=== PATIENT | male | born 1940 | race Caucasian/White ===

== ENCOUNTER 2016-11-03 09:34 | Emergency (ER) | payer MEDICARE, OTHER ==
[~2016-11-03] VITALS: Ht 170.2 cm; Wt 48.5 kg
[~2016-11-03 09:34] MED LIST: ALBU2.5V5 IH; ALLO300T PO; AMLO2.5T PO; ASPI81TA2 PO; BENZ100C2 PO; BREO IH; CLOP75TA27 PO; CYCL10TA2 PO; FINA5TAB4 PO; FLUT10SP NS; FLUT30CR TP; HYDR-971 PO; IPRA14.7 IH; LISI10TA2 PO; LORA10TA3 PO; MECL-51 PO; METO25TA4 PO; MUPI22OI2 TP; NITR0.4T6 SL; OMEG1CAP32 PO; PROAIR HFA8.5 GM IH; RANI300C PO; RIVA10TA PO; SIMV40TA3 PO; colchicine PO
[2016-11-03 11:00] VITALS: BP 136/84
--- NOTE | 2016-11-03 11:09 | RAD ---
Left lower extremity venous ultrasound, 11/03/2016 : History: Left lower extremity pain and tenderness Duplex evaluation including grayscale, color flow and spectral Doppler analysis was performed. The femoral and popliteal veins show no filling defects to suggest DVT. The visualized calf veins are unremarkable. Mildly prominent left inguinal lymph nodes were noted. IMPRESSION: There is no sonographic evidence of deep vein thrombosis in the left lower extremity
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
== END 2016-11-03 11:45 | disposition home or self-care (01) ==
LOC: ER 09:34
DX: M79.662 Pain in left lower leg (principal); I10 Essential (primary) hypertension; I25.2 Old myocardial infarction; J44.9 Chronic obstructive pulmonary disease, unspecified; J45.909 Unspecified asthma, uncomplicated; N40.0 Benign prostatic hyperplasia without lower urinary tract symptoms; Z95.1 Presence of aortocoronary bypass graft; Z88.0 Allergy status to penicillin
CPT/HCPCS: 93971; 99284-25

== ENCOUNTER → 2017-01-30 | Outpatient (CLI) | payer OTHER ==
--- NOTE | 2017-01-30 16:19 | EEG ---
DATE OF SERVICE: 01/30/2017 ELECTROENCEPHALOGRAPH NUMBER: [id number]. OBJECTIVE: This is a 76-year-old male patient with a history of memory loss. EEG was requested to evaluate cerebral activity. METHODS: Twenty electrodes were applied according to the international 10-20 electrode placement system. EKG monitoring, hyperventilation, intermittent photic stimulation, monopolar and bipolar montages are routinely utilized. The record was obtained on a digital system with video monitoring. FINDINGS: 1. Background: The patient was recorded in the awake, drowsy, and sleep states. The overall background amplitude is 5-10 microvolts. A posterior dominant rhythm of 7-10 Hz is observed. 2. Abnormalities: No specific epileptiform discharge or electrographic seizure is seen. No focal or diffuse slowing. 3. Activation: Hyperventilation was performed with good efforts and normal response. Intermittent photic stimulation was performed with photic driving. IMPRESSION: This EEG is within the broad normal limits of the study for the awake, drowsy, and sleep states. No focal, lateralizing, specific epileptiform discharge or electrographic seizure is seen. HIWOT TIAN MD DR: JOHNNY/yakov JOB#: [id number] / [id number]
== END | disposition home or self-care (01) ==
LOC: RT 08:36
PROVIDERS: ATTEND Psychiatry & Neurology Neurology
DX: R41.3 Other amnesia (principal)
CPT/HCPCS: 95816

== ENCOUNTER 2017-03-10 14:43 | Emergency (ER) | payer OTHER ==
[~2017-03-10] VITALS: Ht 175.3 cm; Wt 75.7 kg
[~2017-03-10 14:43] MED LIST changes: +ASPI-630 PO; -ASPI81TA2 PO; +BENZ100C15 PO; -BENZ100C2 PO; -CLOP75TA27 PO; +CLOP75TA57 PO; +NITR0.4T22 SL; -NITR0.4T6 SL
[2017-03-10 15:05] VITALS: BP 148/80
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
[2017-03-10] MEDS ORDERED: NEOMY/BACITR/POLYMYXIN OINT PACKET. TP ONE (15:17)
[2017-03-10] MEDS ORDERED: IBUPROFEN 400 MG TABLET. PO ONE (15:45)
== END 2017-03-10 15:28 | disposition home or self-care (01) ==
LOC: ER 14:43
DX: T23.101A Burn of first degree of right hand, unspecified site, initial encounter (principal); T23.102A Burn of first degree of left hand, unspecified site, initial encounter; J44.9 Chronic obstructive pulmonary disease, unspecified; I10 Essential (primary) hypertension; I25.2 Old myocardial infarction; N40.0 Benign prostatic hyperplasia without lower urinary tract symptoms; Z98.890 Other specified postprocedural states; Z88.0 Allergy status to penicillin; X19.XXXA Contact with other heat and hot substances, initial encounter; Y93.89 Activity, other specified; Y99.8 Other external cause status; Y92.89 Other specified places as the place of occurrence of the external cause
CPT/HCPCS: 16000; 99284-25

== ENCOUNTER → 2018-01-04 | Outpatient (CLI) | payer OTHER, MEDICAID | END | disposition home or self-care (01) | LOC: PNCL 08:46 | DX: M54.5 Low back pain (principal); M25.552 Pain in left hip; M79.605 Pain in left leg; J45.909 Unspecified asthma, uncomplicated; Z79.02 Long term (current) use of antithrombotics/antiplatelets; Z87.891 Personal history of nicotine dependence; Z88.0 Allergy status to penicillin; Z95.1 Presence of aortocoronary bypass graft | CPT/HCPCS: G0463 ==

== ENCOUNTER → 2018-01-14 | Outpatient (CLI) | payer OTHER, MEDICAID ==
[~2018-01-14] MED LIST changes: -ALBU2.5V5 IH; -ALLO300T PO; -AMLO2.5T PO; -ASPI-630 PO; -BENZ100C15 PO; -BREO IH; +BUPIVACAINE MPF 0.25% 10 ML VIAL.; -CLOP75TA57 PO; -CYCL10TA2 PO; -FINA5TAB4 PO; -FLUT10SP NS; -FLUT30CR TP; -HYDR-971 PO; +IOHEXOL 180 MG/ML 10 ML VIAL.; -IPRA14.7 IH; -LISI10TA2 PO; -LORA10TA3 PO; -MECL-51 PO; -METO25TA4 PO; -MUPI22OI2 TP; -NITR0.4T22 SL; -OMEG1CAP32 PO; -PROAIR HFA8.5 GM IH; -RANI300C PO; -RIVA10TA PO; -SIMV40TA3 PO; -colchicine PO; +methylPREDNISolone ACETATE 40 MG/ML VIAL.; +methylPREDNISolone ACETATE 80 MG/ML VIAL.
== END | disposition home or self-care (01) ==
LOC: PNCL 09:46
DX: M46.1 Sacroiliitis, not elsewhere classified (principal); M51.16 Intervertebral disc disorders with radiculopathy, lumbar region; E78.00 Pure hypercholesterolemia, unspecified; I10 Essential (primary) hypertension; J43.9 Emphysema, unspecified; K21.9 Gastro-esophageal reflux disease without esophagitis; Z88.0 Allergy status to penicillin; Z88.1 Allergy status to other antibiotic agents; Z95.1 Presence of aortocoronary bypass graft; Z98.890 Other specified postprocedural states; Z87.01 Personal history of pneumonia (recurrent); M19.90 Unspecified osteoarthritis, unspecified site; F17.200 Nicotine dependence, unspecified, uncomplicated; I25.119 Atherosclerotic heart disease of native coronary artery with unspecified angina pectoris; M10.9 Gout, unspecified; Z82.49 Family history of ischemic heart disease and other diseases of the circulatory system
CPT/HCPCS: 27096; 77002; G0260; J1030; J1040; J3490; Q9965

== ENCOUNTER → 2018-05-05 | Outpatient (CLI) | payer OTHER, MEDICAID ==
[2017-07-10 10:55] VITALS: BP 114/61
[~2018-05-05] MED LIST changes: +ACET500T68 PO; +ALBU2.5V5 IH; +ALLO300T PO; +AMLO2.5T PO; +ASPI-630 PO; +BENZ-8 PO; +BREO IH; -BUPIVACAINE MPF 0.25% 10 ML VIAL.; +CLOP75TA PO; +CLOP75TA57 PO; +CYCL10TA2 PO; +FINA5TAB4 PO; +FLUT10SP NS; +FLUT30CR TP; +GABA-586 PO; +HYDR-971 PO; -IOHEXOL 180 MG/ML 10 ML VIAL.; +IOHEXOL 180 MG/ML 10 ML VIAL. ONE; +IPRA14.7 IH; +LIDOCAINE 2% PF 2ML VIAL. ONE; +LISI10TA2 PO; +LORA10TA3 PO; +MECL-51 PO; +METO-239 PO; +METO25TA4 PO; +MUPI22OI2 TP; +NITR0.4T22 SL; +OMEG1CAP32 PO; +PROAIR HFA8.5 GM IH; +RANI300C PO; +RIVA10TA PO; +SIMV10TA3 PO; +SIMV40TA3 PO; +TAMS0.4C2 PO; +colchicine PO; -methylPREDNISolone ACETATE 40 MG/ML VIAL.; +methylPREDNISolone ACETATE 40 MG/ML VIAL. ONE; -methylPREDNISolone ACETATE 80 MG/ML VIAL.; +methylPREDNISolone ACETATE 80 MG/ML VIAL. ONE
--- NOTE | 2018-05-05 21:58 | PAIN ---
DATE OF SERVICE: 05/05/2018 DIAGNOSES: 1. Lumbar radiculopathy with lumbar degenerative disk disease. 2. Left sacroiliitis. HISTORY OF PRESENT ILLNESS: The patient is a 77-year-old male who returns for followup status post left sacroiliac joint injection on 01/14/2018. The patient did very well with this, reports the pain was decreased significantly about 60%, still having pain radiating down his left lower extremity which he had previously. We discussed coming back for a lumbar epidural steroid injection and the patient would like to proceed with that today. The patient reports pain in low back, left hip, left lateral thigh, posterior thigh, posterior calf, into the lateral calf and ankle on the left side. Rates it 8 on a scale of 10 on average, 9 is worst and is 5 at its least and is 8 today. The patient reports no new motor or sensory deficits, no new bowel or bladder incontinence. Describes his pain is shooting, sharp, burning, tight, aching in the low back; worse with activity, worse with standing, walking; better with sitting down or lying down. The patient reports the pain is essentially gone when he lies down. He is sleeping well at night. PHYSICAL EXAMINATION: VITAL SIGNS: The patient's blood pressure 120/67, pulse 90, respirations 18, temperature 98.2 degrees Fahrenheit, 5 feet 7 inches, weight is 165 pounds. GENERAL: The patient is awake, alert, oriented, appropriate, very pleasant demeanor. HEENT: Head is normocephalic, atraumatic. Extraocular movements are intact, symmetrical. Oral cavity: Mucous membranes moist and pink. Dentition is intact. NECK: Shows anterior throat supple without palpable lymphadenopathy noted. Swallow reflex symmetrical. CHEST: Shows normal on inspection. Breath sounds clear to auscultation bilaterally. HEART: Shows S1, S2 clear. No murmurs auscultated. ABDOMEN: Soft, nontender, nondistended. No palpable organomegaly is noted. No rebound or guarding demonstrated. BACK: The patient's back shows spine grossly in the midline, normal-appearing thoracic kyphosis and minor flattening lumbar lordotic curvature. Lumbar paraspinous muscle shows symmetrical on inspection, on palpation shows some moderate tenderness only diffusely in the low lumbar distribution bilaterally without radiation. The patient has good rotational motion without significant tenderness both laterally as well as extension and flexion. EXTREMITIES: The patient's lower extremities show deep tendon reflexes at 1+ in the patellar and tendo-calcaneus tendons. Motor exam is strong with 4-5 on a scale of 10, but equal and symmetrical bilaterally. PLAN: Options were discussed with the patient. The patient has been off of his Plavix now for just over 7 days and would like to proceed with lumbar epidural steroid injection. We described the procedure using description as well as anatomical models. Risks were then discussed including, but not limited to bleeding, infection, possibility of epidural hematoma and subsequent neurological compromise, dural puncture, headaches, spinal cord and/or nerve damage, side effects of steroid medication and poor to describe pain control. The patient understands and wishes to proceed. The patient will return to clinic in approximately 2 weeks for followup. He was counseled on return appointment, activity level and side effects to be aware of. DIAGNOSIS: Lumbar radiculopathy with lumbar degenerative disk disease. PROCEDURE: Lumbar epidural steroid injection, translaminar approach at L5-S1 level using C-arm fluoroscopic guidance under sterile prep and drape using local anesthetic. MEDICATION INJECTED: A total of 120 mg Depo-Medrol plus 10 mL of preservative-free normal saline and 2 mL of Isovue for contrast. CONDITION AT DISCHARGE: Stable. The patient tolerated procedure well, had no complications. FREEDOM RANDOLPH MD DR: RADHA/yakov JOB#: [id number] / [id number]
== END | disposition home or self-care (01) ==
LOC: PNCL 09:01
PROVIDERS: ATTEND Anesthesiology
DX: M51.16 Intervertebral disc disorders with radiculopathy, lumbar region (principal); M46.1 Sacroiliitis, not elsewhere classified; I25.10 Atherosclerotic heart disease of native coronary artery without angina pectoris; J43.9 Emphysema, unspecified; J45.909 Unspecified asthma, uncomplicated; M19.90 Unspecified osteoarthritis, unspecified site; E78.00 Pure hypercholesterolemia, unspecified; I10 Essential (primary) hypertension; K21.9 Gastro-esophageal reflux disease without esophagitis; F17.200 Nicotine dependence, unspecified, uncomplicated; Z98.890 Other specified postprocedural states; Z95.1 Presence of aortocoronary bypass graft; Z88.1 Allergy status to other antibiotic agents; Z88.0 Allergy status to penicillin; Z79.02 Long term (current) use of antithrombotics/antiplatelets; Z79.899 Other long term (current) drug therapy
CPT/HCPCS: 62323; J1030; J1040; J2001; Q9965

== ENCOUNTER 2018-12-03 14:16 | Emergency (ER) | payer OTHER, MEDICAID ==
[~2018-12-03] VITALS: Ht 177.8 cm; Wt 77.1 kg
[~2018-12-03 14:16] MED LIST changes: +ALBU2.5V8 IH; -AMLO2.5T PO; +AMLO2.5T5 PO; -GABA-586 PO; +GABA300C18 PO; +HYDR-3164 PO; -HYDR-971 PO; -IOHEXOL 180 MG/ML 10 ML VIAL. ONE; -LIDOCAINE 2% PF 2ML VIAL. ONE; -PROAIR HFA8.5 GM IH; -methylPREDNISolone ACETATE 40 MG/ML VIAL. ONE; -methylPREDNISolone ACETATE 80 MG/ML VIAL. ONE
[2018-12-03 14:26] VITALS: BP 169/90
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
--- NOTE | 2018-12-03 15:14 | RAD ---
Examination: 2 views of the right humerus HISTORY: History of right upper extremity pain COMPARISON: None available FINDINGS: The humerus head is within the glenoid. Mild degenerative disease identified in the glenohumeral joint. There is no acute fracture or dislocation identified. IMPRESSION: No acute osseous findings. Electronically signed by: Kiel Johnson MD (12/03/2018 3:10 PM) [id number]
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
[2018-12-03 15:38] LABS: BASO % 1 % (0-3); EOS # 0.1 x10^3/uL (0.0-0.7); EOS % 2 % (0-3); HEMATOCRIT 38.8 % (39.0-53.0); LYMPH # 1.6 x10^3/uL (1.0-4.8); LYMPH % 23 % (24-48); MEAN CORPUSCULAR HEMOGLOBIN 30 pg (25-35); MEAN CORPUSCULAR HGB CONC 33 g/dL (31-37); MEAN CORPUSCULAR VOLUME 91 fL (79-100); MONO # 0.9 x10^3/uL (0.0-1.1); MONO % 13 % (0-9); NEUT # 4.2 x10^3uL (1.8-7.7); NEUT % 62 % (31-73); PLATELET COUNT 165 x10^3/uL (140-400); RED BLOOD COUNT 4.29 x10^6/uL (4.30-5.70); RED CELL DISTRIBUTION WIDTH 15.7 % (11.5-14.5); WHITE BLOOD COUNT 6.9 x10^3/uL (4.0-11.0)
[2018-12-03 15:52] LABS: CALCIUM 9.1 mg/dL (8.5-10.1); CREATININE 1.1 mg/dL (0.7-1.3); GFR 65.1; POTASSIUM 3.9 mmol/L (3.5-5.1)
[2018-12-03 15:55] LABS: PROTHROMBIN TIME PATIENT 13.7 SEC (11.7-14.0)
[2018-12-03 15:57] LABS: ALBUMIN 3.6 g/dL (3.4-5.0); ALBUMIN/GLOBULIN RATIO 0.9 (1.0-1.7); TOTAL BILIRUBIN 0.5 mg/dL (0.2-1.0); TOTAL PROTEIN 7.4 g/dL (6.4-8.2)
[2018-12-03] MEDS ORDERED: TRAM50TA PO (16:06)
== END 2018-12-03 16:21 | disposition home or self-care (01) ==
LOC: ER 14:16
DX: S09.90XA Unspecified injury of head, initial encounter (principal); M79.601 Pain in right arm; K21.9 Gastro-esophageal reflux disease without esophagitis; J44.9 Chronic obstructive pulmonary disease, unspecified; I10 Essential (primary) hypertension; E78.00 Pure hypercholesterolemia, unspecified; I25.2 Old myocardial infarction; Z86.73 Personal history of transient ischemic attack (TIA), and cerebral infarction without residual deficits; Z95.5 Presence of coronary angioplasty implant and graft; Z88.0 Allergy status to penicillin; Z88.1 Allergy status to other antibiotic agents
CPT/HCPCS: 36415; 70450; 71045; 72125; 73060; 80053; 85025; 85610; 99284-25

== ENCOUNTER → 2019-06-06 | Outpatient (CLI) | payer OTHER, MEDICAID ==
[~2019-06-06] MED LIST changes: +TRAM50TA PO
--- NOTE | 2019-06-06 10:34 | PAIN ---
DATE OF SERVICE: 06/06/2019 PROGRESS NOTE FOR PAIN CLINIC DIAGNOSES: 1. Lumbar radiculopathy with lumbar degenerative disk disease. 2. Sacroiliitis, left. HISTORY OF PRESENT ILLNESS: The patient is a 78-year-old male who returns for followup status post lumbar epidural steroid injection x 1 and left sacroiliac joint injection, last seen in 04/2018. The patient did very well with each of these with about 60% improvement. The patient reports pain in the back and legs stay away for a long time, but over the past couple of months, he was lifting a large cat litter bucket which is full and very heavy which has put some strain on his low back and it is shooting down into his left leg down the posterior gluteus, posterior thigh, posterior calf to some extent. The patient reports the pain in the hip itself, but mostly in the left posterior thigh and into the knee. The patient reports it is on and off in intensity, worse with walking, standing, changing positions, better with sitting or lying down, does not awaken him from sleep at night generally, but has over the past 2-3 weeks. The patient reports the pain is a 9 on a scale of 10 at all times, average, worst and least over the past week and is a 9 today. The patient reports no new motor or sensory deficits, no new changes. PHYSICAL EXAMINATION: VITAL SIGNS: The patient's blood pressure 123/55, pulse 69, respirations 18, temperature 98.1 degrees Fahrenheit, height is 5 feet 7 inches, weight is 157 pounds. GENERAL: The patient is awake, alert, oriented, appropriate, very pleasant demeanor. HEENT: Shows normocephalic, atraumatic. Extraocular movements are intact and symmetrical. Oral cavity: Mucous membranes moist and pink. Dentition is intact. NECK: Shows anterior throat supple without palpable lymphadenopathy noted. Swallow reflex symmetrical. CHEST: Shows normal on inspection. Breath sounds are clear to auscultation bilaterally. HEART: Shows S1, S2 clear. No murmurs auscultated. ABDOMEN: Soft, nontender, nondistended. No palpable organomegaly is noted. No rebound or guarding demonstrated. BACK: Shows spine grossly in the midline. Normal appearing thoracic kyphosis and minor flattening of lumbar lordotic curvature. Lumbar paraspinous muscle shows symmetrical on inspection, with palpation shows some moderate tenderness diffusely bilaterally going diffusely without radiation. EXTREMITIES: The patient's lower extremities show deep tendon reflexes at 1+ in the patellar and tendo calcaneus tendons. Motor exam is approximately 4 on a scale of 5, but equal, symmetrical with dorsiflexion, extension, quadriceps and hamstring flexion. Peripheral pulses are 1+ posterior tibia. No peripheral edema is noted. The patient's sacroiliac region shows some very mild tenderness with deep palpation of the left posterior superior iliac spine, but not the right, but no specific tenderness over the sacroiliac joint itself. Options were discussed with the patient. The patient's old chart was reviewed as his current medication regimen updated. Current review of systems updated today as well. We will check with the patient's destination specialist to hold his Plavix for 7 days prior to lumbar epidural steroid injection. If deemed safe and appropriate. We will have the patient return after holding the Plavix and plan on lumbar epidural steroid injection at that time. FREEDOM RANDOLPH MD DR: RADHA/yakov JOB#: [id number] / [id number]
== END | disposition home or self-care (01) ==
LOC: PNCL 08:57
PROVIDERS: ATTEND Anesthesiology
DX: M51.16 Intervertebral disc disorders with radiculopathy, lumbar region (principal); M46.1 Sacroiliitis, not elsewhere classified
CPT/HCPCS: G0463

== ENCOUNTER → 2019-06-21 | Outpatient (CLI) | payer OTHER, MEDICAID ==
[~2019-06-21] MED LIST changes: -FLUT30CR TP; +FLUT30CR2 TP
--- NOTE | 2019-06-21 13:23 | PAIN ---
DATE OF SERVICE: 06/21/2019 PROGRESS NOTE FOR PAIN CLINIC DIAGNOSES: Lumbar radiculopathy with lumbar degenerative disk disease. HISTORY OF PRESENT ILLNESS: The patient is a 78-year-old male who returns for followup status post lumbar epidural steroid injection x 1 with about 60% improvement. The patient has been off his Plavix now, is cleared by his senior group manager for the past 7 days. He reports pain returning in the low back and left lower extremity. It was previously mostly in posterior gluteus, posterior thigh and posterior calf. The patient reports it is worse with walking, standing, changing positions. He reports he was cleaning his garage yesterday and he fell over a box, which has exacerbated the pain as well on the left side and leg. The patient reports otherwise doing fairly well. No new motor or sensory deficits, no new bowel or bladder incontinence. The patient rates his pain as a 9 on a scale of 10 at its worst, average and least over the past week and is a 9 today. The patient reports it does not awaken him from sleep at night, better with sleeping or lying down and he has increased his activity since his last injection significantly. PHYSICAL EXAMINATION: VITAL SIGNS: The patient's blood pressure is 137/77, pulse is 88, respirations 16, temperature 98.0 degrees Fahrenheit, height is 5 feet 7 inches, weight is 157 pounds. GENERAL: The patient is awake, alert, oriented, appropriate, very pleasant demeanor. HEENT: Shows normocephalic, atraumatic. Extraocular movements are intact and symmetrical. Oral cavity: Mucous membranes moist and pink. Dentition is intact. NECK: Shows anterior throat supple without palpable lymphadenopathy noted. Swallow reflex symmetrical. CHEST: Shows normal on inspection. Breath sounds clear to auscultation bilaterally. HEART: Shows S1, S2 clear. No murmurs auscultated. ABDOMEN: Soft, nontender, nondistended. BACK: Shows spine grossly in the midline. Normal appearing thoracic kyphosis and flattening of lumbar lordotic curvature. Lumbar paraspinous muscle shows symmetrical on inspection, with palpation shows some moderate tenderness diffusely bilaterally, going diffusely without radiation. EXTREMITIES: The patient's lower extremities show deep tendon reflexes 1+ in the patellar and tendo calcaneus tendons. Motor exam is approximately 4 on a scale of 5, but equal and symmetrical bilaterally without deficit. Peripheral pulses are 1+ posterior tibia. No peripheral edema is noted. Options were discussed with the patient. The patient's old chart was reviewed as his current medication regimen and updated. Current review of systems is updated as well. We will proceed with lumbar epidural steroid injection today. Risks were again discussed including, but not limited to bleeding, infection, possibility of epidural hematoma, subsequent neurological compromise, dural puncture, headaches, spinal cord and/or nerve damage, side effects of steroid medication and poor results regarding pain control. The patient understands and wished to proceed. The patient will return to clinic in approximately 3 weeks for followup. He was counseled on return appointment, activity level and side effects to be aware of. The patient will restart his Plavix tomorrow as instructed. DIAGNOSES: Lumbar radiculopathy with lumbar degenerative disk disease. PROCEDURE: Lumbar epidural steroid injection, translaminar approach at the L5-S1 level using C-arm fluoroscopic guidance under sterile prep and drape using local anesthetic. MEDICATION INJECTED: A total of 120 mg of Depo-Medrol plus 10 mL of preservative-free normal saline and 2 mL of contrast. CONDITION AT DISCHARGE: Stable. The patient tolerated the procedure well, had no complications. FREEDOM RANDOLPH MD DR: RADHA/yakov JOB#: [id number] / [id number]
== END ==
LOC: PNCL 11:02
PROVIDERS: ATTEND Anesthesiology
DX: M51.16 Intervertebral disc disorders with radiculopathy, lumbar region (principal)
CPT/HCPCS: 62323

== ENCOUNTER → 2019-09-28 | Day surgery (SDC) | payer MEDICARE, OTHER ==
[~2019-09-28] MED LIST changes: +BREO ELLIPTA 11 EACH IH; +HYDROmorphone 2 MG/ML VIAL IV PRN; +IV RINGERS,LACTATED 1000ML 1,000 ML IV SCH; +LIDOCAINE 1% PF 2 ML VIAL. ID PRN; +LIDOCAINE 2% PF 5 ML VIAL. ONE; +MORPHINE SULFATE 2 MG/ML VIAL. IV PRN; +ONDANSETRON PF 4 MG/2 ML VIAL. IV PRN; +PROCHLORPERAZINE 10 MG/2 ML VIAL. IV PRN; +PROPOFOL 20 ML IV ONE; +RIVA20TA2 PO; +SIMV10TA15 PO; -SIMV10TA3 PO; +SIMV40TA18 PO; -SIMV40TA3 PO; +fentaNYL PF VIAL 100 MCG/2 ML VIAL IV PRN
--- NOTE | 2019-09-28 09:59 | EKG ---
[facility] [address] [place] [address] Test Date: 2019-09-28 Test Time: 09:58:02 Pat Name: DARLYN FLORES Department: Room: Gender: M [employer] Operations Manager: ANTONIETA Plummer : 1940 Requested By: GILBERTO DIAZ Order Number: [id number] Reading MD: Measurements Intervals [place] Rate: 66 P: DE: QRS: 70 QRSD: 90 T: 31 QT: 410 QTc: 432 Interpretive Statements IRREGULAR RHYTHM, NO P-WAVE FOUND LOW LIMB LEAD VOLTAGE NO SPECIFIC ECG ABNORMALITIES RI6.01 Compared to ECG 12/02/2015 12:27:15 Sinus rhythm no longer present Prolonged QT interval no longer present
[2019-09-28 10:42] LABS: HEMATOCRIT 40.2 % (39.0-53.0); HEMOGLOBIN 13.9 g/dL (13.0-17.5); RED BLOOD COUNT 4.4 x10^6/uL (4.30-5.70); RED CELL DISTRIBUTION WIDTH 15.5 % (11.5-14.5); WHITE BLOOD COUNT 7.2 x10^3/uL (4.0-11.0)
[2019-09-28 11:05] LABS: CALCIUM 9.1 mg/dL (8.5-10.1); CREATININE 1.1 mg/dL (0.7-1.3); GFR 64.9; MAGNESIUM 1.9 mg/dL (1.8-2.4); POTASSIUM 3.9 mmol/L (3.5-5.1)
--- NOTE | 2019-09-28 11:27 | EKG ---
[facility] [address] [place] [address] Test Date: 2019-09-28 Test Time: 11:25:03 Pat Name: DARLYN FLORES Department: Room: Gender: M Household Cook: : 1940 Requested By: GILBERTO DIAZ Order Number: [id number] Reading MD: Measurements Intervals [place] Rate: 59 P: 0 [place]: 186 QRS: 49 QRSD: 88 T: 30 QT: 436 QTc: 436 Interpretive Statements SINUS RHYTHM LOW LIMB LEAD VOLTAGE NO SPECIFIC ECG ABNORMALITIES RI6.02 Compared to ECG 12/02/2015 12:27:15 Prolonged QT interval no longer present
[2019-09-28 11:49] VITALS: BP 124/66
--- NOTE | 2019-09-28 14:07 | PDOC4 ---
PROCEDURE Procedure Patient is a pleasant 79-year-old male with a history of bypass surgery, hyp erlipidemia and hypertension. Patient also has a history of atrial fibrillation which has been now on a continuing basis. He has been on Xeralto for greater than 6 weeks. We have discussed on several occasions attempted cardioversion with the advantage being both symptomatically and if he remains in sinus rhythm being able to discontinue his anticoagulation after several months. Risks and benefits discussed with patient. He has agreed to proceed with an attempted cardioversion. CBC and BNP results were within normal limits. The patient confirmed he has been on Xeralto for greater than 6 weeks. The anesthesiology service reviewed the patient and proceeded with anesthetizing the patient to a appropriate level of consciousness. At that time the patient received 200 J of synchronized energy which converted him from a atrial fibrillation to sinus rhythm. He woke up normally from anesthesia. Results were discussed with the patient and his family. He will be continued on present medications and followed up in the [facility] in 2-3 weeks. Conclusion. Successful cardioversion of atrial fibrillation to sinus rhythm. GILBERTO DIAZ MD Sep 28, 2019 14:07
== END ==
LOC: SURG 09:13
PROVIDERS: ATTEND Internal Medicine Cardiovascular Disease
DX: I48.91 Unspecified atrial fibrillation (principal); Z86.73 Personal history of transient ischemic attack (TIA), and cerebral infarction without residual deficits; I10 Essential (primary) hypertension; E78.00 Pure hypercholesterolemia, unspecified; I25.10 Atherosclerotic heart disease of native coronary artery without angina pectoris; J43.9 Emphysema, unspecified; K21.9 Gastro-esophageal reflux disease without esophagitis; M10.9 Gout, unspecified; Z95.1 Presence of aortocoronary bypass graft; Z87.891 Personal history of nicotine dependence; Z98.42 Cataract extraction status, left eye; Z98.41 Cataract extraction status, right eye; Z96.1 Presence of intraocular lens
CPT/HCPCS: 36415; 80048; 83735; 85027; 92960; 93005; J2001; J2704

== ENCOUNTER 2020-03-27 16:28 | Emergency (ER) | payer MEDICARE, MEDICAID ==
[~2020-03-27] VITALS: Ht 167.6 cm; Wt 63.6 kg
[~2020-03-27 16:28] MED LIST changes: +DIGO125T3 PO; -HYDROmorphone 2 MG/ML VIAL IV PRN; -IV RINGERS,LACTATED 1000ML 1,000 ML IV SCH; -LIDOCAINE 1% PF 2 ML VIAL. ID PRN; -LIDOCAINE 2% PF 5 ML VIAL. ONE; +METO50TA6 PO; -MORPHINE SULFATE 2 MG/ML VIAL. IV PRN; -ONDANSETRON PF 4 MG/2 ML VIAL. IV PRN; -PROCHLORPERAZINE 10 MG/2 ML VIAL. IV PRN; -PROPOFOL 20 ML IV ONE; +ZINC220C2 PO; -fentaNYL PF VIAL 100 MCG/2 ML VIAL IV PRN
--- NOTE | 2020-03-27 18:36 | PHYS DOC ---
Past Medical History Past Medical History: Asthma, Bronchitis, COPD, CVA, GERD, High Cholesterol, Hypertension, OK, Other Additional Past Medical Histor: MIX 2 IN 2008, ENLARGED PROSTATE, SEASONAL ALL ERIGES, GOUT Past Surgical History: Coronary Bypass Surgery, Tonsillectomy, Other Additional Past Surgical Histo: METAL PLATES IN NECK(ARTHRITIS), VASCULAR SURGERY LEFT LEG,HERNIA Smoking Status: Former Smoker Alcohol Use: None Drug Use: None General Adult EDM: Chief Complaint: LOWEREXTREMITY INJURY HPI: HPI: Patient is a 79 year old male who had a fall in his bathroom a couple days ago. Patient states there is a lip and he lost his balance and fell backwards. Patient did hit his head but had no loss of consciousness. Patient complains of right hip and left foot pain. Patient denies any trouble breathing. Patient has had a cough. Of note patient had coronavirus 2 months ago. No recent feve rs. No trouble breathing. Pain in the foot is the worst and worse with movement and range of motion. Pain is described as moderate and nonradiating. Review of Systems: Review of Systems: Constitutional: Denies fever or chills Eyes: Denies change in visual acuity HENT: Denies sore throat Respiratory: Denies shortness of breath but has had a cough Cardiovascular: Denies chest pain or edema GI: Denies abdominal pain, nausea, vomiting, or diarrhea : Denies dysuria Musculoskeletal: Complains of back pain, right hip and left foot pain Integument: Denies rash Neurologic: Denies headache or focal weakness Psychiatric: Denies depression or anxiety Heart Score: Risk Factors: Risk Factors: DM, Current or recent (<one month) smoker, HTN, HLP, family history of CAD, obesity. Risk Scores: Score 0 - 3: 2.5% MACE over next 6 weeks - Discharge Home Score 4 - 6: 20.3% MACE over next 6 weeks - Admit for Clinical Observation Score 7 - 10: 72.7% MACE over next 6 weeks - Early Invasive Strategies Allergies: Allergies: Allergies Coded Allergies Type Severity Reaction Last Updated Verified Penicillins Allergy Intermediate Rash 01/20/20 Yes doxycycline Allergy Intermediate lipsswollen, brokeout mouth 09/22/19 Yes Physical Exam: PE: Constitutional: Well developed, well nourished, no acute distress, non-toxic appearance. [] HENT: Normocephalic, atraumatic, bilateral external ears normal, no trismus nose normal. [] Eyes: PERRLA, EOMI, conjunctiva normal, no discharge. [] Neck: Normal range of motion, no tenderness, supple, no stridor. [] Cardiovascular:Heart rate regular rhythm, Lungs & Thorax: Bilateral breath sounds clear to auscultation [] Abdomen: soft, no tenderness, no masses, no pulsatile masses. [] Skin: Warm, dry, no erythema, no rash. mild erythema to left leg w/o significant warmth Back: Mild diffuse tenderness to palpation Extremities: Mild tenderness to the right hip, mild tenderness to left ankle moderate tenderness to left foot. Mild edema to bilateral lower extremity, left greater than right. Neurologic: Alert and oriented X 3, normal motor function, normal sensory function, no focal deficits noted. [] Psychologic: Affect normal, judgement normal, mood normal. [] EKG: EKG: [] Radiology/Procedures: Radiology/Procedures: [][facility] [address] [place], [place] [id number] IMAGING REPORT Signed PATIENT: DARLYN FLORES OACCOUNT: [id number] : 1940 LOCATION: ER AGE: 79 SEX: M EXAM STATUS: REG ER ORD. PHYSICIAN: LILLI BARKSDALE MD REASON: fall PROCEDURE: ANKLE LEFT 3V EXAM: AP, oblique and lateral views of the left ankle AP, oblique and lateral views of the left foot DATE: 03/27/2020 6:23 PM INDICATION: Fall COMPARISON: No Prior FINDINGS: No acute fracture or dislocation. Ankle mortise is congruent. Talar dome is intact. Marked soft tissue swelling overlying the lateral malleolus and anterior left ankle as well as the dorsal forefoot and midfoot. Hallux MTP joint degenerative changes are seen. Ankle joint degenerative changes are seen. Talonavicular joint degenerative changes are seen. Atherosclerotic vascular calcifications are seen. Calcaneal enthesopathy. IMPRESSION: 1. Diffuse soft tissue swelling about the left foot and ankle without associated fracture or dislocation. 2. Calcaneal enthesopathy. 3. Hallux MTP degenerative change as well as midfoot degenerative changes are seen. Electronically signed by: Miguel Ma MD (03/27/2020 7:10 PM) [facility] DICTATED and SIGNED BY: MIGUEL MA MD DATE: 03/27/20 191 [facility] [address] [place] [address] IMAGING REPORT Signed PATIENT: DARLYN FLORES OACCOUNT: [id number] : 1940 LOCATION: ER AGE: 79 SEX: M EXAM STATUS: REG ER ORD. PHYSICIAN: LILLI BARKSDALE MD REASON: fall PROCEDURE: PORTABLE CHEST 1V EXAM: AP View of the chest DATE: 03/27/2020 6:23 PM INDICATION: Fall COMPARISON: 01/17/2020, 12/03/2018 FINDINGS/ IMPRESSION: The heart is not enlarged. Calcifications of aorta are seen. Patchy opacities left lung base are grossly unchanged, possibly scarring or atelectasis. No pleural effusion or pneumothorax. Electronically signed by: Miguel Ma MD (03/27/2020 7:08 PM) [facility] DICTATED and SIGNED BY: MIGUEL MA MD DATE: 03/27/20 190 [facility] [address] [place], [place] [id number] [place] [id number] [place] [address] IMAGING REPORT Signed PATIENT: DARLYN FLORES OACCOUNT: [id number] : 1940 LOCATION: ER AGE: 79 SEX: M EXAM STATUS: REG ER ORD. PHYSICIAN: LILLI BARKSDALE MD REASON: fall, HEAD INJURY PROCEDURE: CT HEAD WO CONTRAST CT Head W/O Contrast: History: Reason: fall, HEAD INJURY / Spl. Instructions: / History: Comparison: none Axial images were obtained without contrast. There is moderate diffuse atrophy. There is no mass effect, extraaxial fluid collections or hydrocephalus. There is no gross bleed. Mild, patchy periventricular and subcortical white matter hypoattenuation is seen. There is no focal loss of barnhart-white matter distinction to suggest acute ischemia, i.e. stroke. Impression: No acute findings. PQRS Compliance Statement: One or more of the following individualized dose reduction techniques were utilized for this examination: 1. Automated exposure control 2. Adjustment of the mA and/or kV according to patient size 3. Use of iterative reconstruction technique Electronically signed by: Eloisa Medina III, MD (03/27/2020 7:26 PM) [facility] DICTATED and SIGNED BY: ELOISA MEDINA III, MD DATE: 03/27/201925 [facility] [address] [place] [address] IMAGING REPORT Signed PATIENT: DARLYN FLORES OACCOUNT: [id number] : 1940 LOCATION: ER AGE: 79 SEX: M EXAM STATUS: REG ER ORD. PHYSICIAN: LILLI BARKSDALE MD REASON: fall, BACK INJURY PROCEDURE: CT LUMBAR SPINE WO CONTRAST Examination: CT THORACIC SPINE WO CONTRAST, CT LUMBAR SPINE WO CONTRAST History: Reason: fall, BACK INJURY, pain Comparison/Correlation: None Findings: Axial images of the thoracic and lumbar spine were obtained without contrast. Sagittal and coronal reformatted images were provided. The thoracic spine is normal. Confluent calcification along the anterior margins of the thoracic spine noted with disc spaces are adequate. Mild dextroconvexity of the upper thoracic spine noted. Alignment of the lumbar spine is unremarkable. Spurring is noted involving the lumbar spine vertebral bodies anteriorly. This spaces are adequate. Vertebral body heights are adequate. Facet joint degenerative changes of the lower lumbar spine are present. Sacroiliac joints are unremarkable bilaterally. Concentric disc bulge at L3-4 is present. Mild L4-5 concentric disc bulge is also present. Moderate spinal canal stenosis at these levels is present. Neural foramina are adequate. Retroperitoneum is unremarkable. Small pleural effusions are present. Extensive coronary arterial calcification noted. Retroperitoneum is unremarkable. Impression: No fracture or malalignment. Findings of diffuse hepatic skeletal hyperostosis involving thoracic spine. Small pleural effusions. Electronically signed by: Michel Alcala MD (03/27/2020 7:34 PM) [place] [id number] DICTATED and SIGNED BY: MICHEL ALCALA MD DATE: 03/27/201933 [address] [place] [address] IMAGING REPORT Signed PATIENT: DARLYN FLORES OACCOUNT: [id number] : 1940 LOCATION: ER AGE: 79 SEX: M EXAM STATUS: REG ER ORD. PHYSICIAN: LILLI BARKSDALE MD REASON: fall PROCEDURE: HIP RIGHT 2V WITH PELVIS Examination: HIP RIGHT 2V WITH PELVIS History: Reason: fall /pain Comparison/Correlation: None Findings: Frontal view of pelvis and lateral view right hip are obtained. Frog-leg lateral view right hip are obtained. Hip joints are symmetric. Sacroiliac joints are symmetric and unremarkable. No displaced fracture or bone destruction. Impression: No acute fracture. Consider further imaging if occult process is a persistent concern. Electronically signed by: Michel Alcala MD (03/27/2020 7:14 PM) [facility] DICTATED and SIGNED BY: MICHEL ALCALA MD DATE: 03/27/201913 [facility] [address] [place] [address] IMAGING REPORT Signed PATIENT: DARLYN FLORES OACCOUNT: [id number] : 1940 LOCATION: ER AGE: 79 SEX: M EXAM STATUS: REG ER ORD. PHYSICIAN: LILLI BARKSDALE MD REASON: PAIN PROCEDURE: VENOUS LOWER EXTREMITY LEFT Examination: Unilateral venous Doppler. Technique: Ultrasound evaluation of the left lower extremity was performed from the groin to the upper calf with conteh scale, spectral and color doppler evaluation. Indication: Leg swelling Comparison: None Findings: There is normal venous flow and compressibility of left common femoral vein, femoral vein, popliteal vein, and visualized proximal calf veins. Diffuse cutaneous soft tissue swelling about the lower leg. Impression: No evidence for deep vein thrombosis of left lower extremity from the level of the calf veins to the groins. Electronically signed by: Miguel Ma MD (03/27/2020 8:40 PM) [facility] DICTATED and SIGNED BY: MIGUEL MA MD DATE: 03/27/202039 [facility] [address] [place] [address] IMAGING REPORT Signed PATIENT: DARLYN FLORES OACCOUNT: [id number] : 1940 LOCATION: ER AGE: 79 SEX: M EXAM STATUS: REG ER ORD. PHYSICIAN: LILLI BARKSDALE MD REASON: FALL, LEG PAIN PROCEDURE: TIBIA FIBULA LEFT Examination: TIBIA FIBULA LEFT History: Reason: FALL, LEG PAIN / Spl. Instructions: / History: Comparison/Correlation: None Findings: Frontal and lateral views of the left tibia and fibula were obtained. The distal aspect of the tibia and fibula were not included on this examination limiting assessment. Surgical clips are present at the distal femoral level and proximal tibial level. No fracture or bone destruction. Minimal spurring about the patella is noted. Medial and lateral compartment are unremarkable. Impression: No fracture or bony destructive finding involving the visualized proximal to mid tibia and fibula. The distal tibia and fibula were not included. Consider further imaging if needed for more complete assessment. Electronically signed by: Michel Alcala MD (03/27/2020 8:38 PM) [facility] DICTATED and SIGNED BY: MICHEL ALCALA MD DATE: 03/27/202037 Course & Med Decision Making: Course & Med Decision Making Pertinent Labs and Imaging studies reviewed. (See chart for details) [] On reassessment the is in the room and she is concerned about the new swelling to the left leg as well as some mild erythema. We will add on a Dop pler and x-ray of the tib-fib as well. 79-year-old female presents with falls. Patient's imaging is negative. Patient underwent a head CT due to the fact he is over 65 and not a anticoagulant. Patient noted to have erythema to the left leg. Doppler was negative for DVT. X-rays negative for fracture. We will place patient on antibiotics. Dragon Disclaimer: Dragon Disclaimer: This electronic medical record was generated, in whole or in part, using a voice recognition dictation system. Departure Departure Impression: Primary Impression: Left ankle sprain Additional Impressions: Contusion of right hip Back contusion Head injury Cellulitis of left leg Disposition: 01 HOME, SELF-CARE Condition: STABLE Referrals: DEBRA MEDEROS MD (PCP) 2-3 DAYS Patient Instructions: Cellulitis, Contusion, Head Injury, Adult Additional Instructions: EMERGENCY DEPARTMENT GENERAL DISCHARGE INSTRUCTIONS THANK YOU for coming to [facility] Emergency Department (ED) today and trusting us with your care. We trust that you had a positive experience in our Emergency Department. If you wish to speak to the department Management you can contact the emergency department rn at . YOUR FOLLOW UP INSTRUCTIONS ARE FOLLOWS: Do you have a private doctor? If you do not have a private doctor, please ask for a resource list of physicians or clinics that may be able to assist you with follow up ca re. The Emergency Physician has interpreted your x-rays. The X-ray specialist will also review them. If there is a change in the findings you will be notified in 48 hours when at all possible. A lab test or lab culture may have been done, your results will be reviewed and you will be notified if you need a change in treatment. ADDITIONAL INSTRUCTIONS AND INFORMATION Your care today has been supervised by a physician who is specially trained in emergency care. Many problems require more than one evaluation for a complete diagnosis and treatment. We recommend that you schedule your follow up appointment as recommended to ensure complete treatment of your illness or injury. If you are unable to obtain follow up care and continue to have a problem, or if your condition worsens we recommend that you return to the ED. We are not able to safely determine your condition over the phone nor are we able to give sound medical advice over the phone. For these safety reasons, if you call for medical advice we will ask you to come to the ED for further evaluation If you have any questions regarding these discharge instructions please call the ED at . SAFETY INFORMATION In the interest of safety, wellness, and injury prevention; we encourage you to wear your seatbelt, if you smoke; quit smoking, and we encourage your family to use protective helmet for bicycling and other sporting events that present an increased risk for head injury. IF YOUR SYMPTOMS WORSEN OR NEW SYMPTOMS DEVELOP, OR YOU HAVE CONCERNS ABOUT YOUR CONDITION; OR IF YOUR CONDITION WORSENS WHILE YOU ARE WAITING FOR YOUR FOLLOW UP APPOINTMENT; EITHER CONTACT YOUR PRIMARY CARE DOCTOR, THE PHYSICIAN WHOSE NAME AND NUMBER YOU WERE GIVEN, OR RETURN TO THE ED IMMEDIATELY. Scripts Cephalexin (KEFLEX) 500 Mg Capsule 500 MG PO QID for 7 Days, #28 CAP Prov: LILLI BARKSDALE MD 03/27/20 Justicifation of Admission Dx: Justifications for Admission: Justification of Admission Dx: N/A LILLI BARKSDALE MD Mar 27, 2020 18:36
--- NOTE | 2020-03-27 19:11 | RAD ---
EXAM: AP View of the chest DATE: 03/27/2020 6:23 PM INDICATION: Fall COMPARISON: 01/17/2020, 12/03/2018 FINDINGS/ IMPRESSION: The heart is not enlarged. Calcifications of aorta are seen. Patchy opacities left lung base are grossly unchanged, possibly scarring or atelectasis. No pleural effusion or pneumothorax. Electronically signed by: Miguel Collins MD (03/27/2020 7:08 PM) [facility]
--- NOTE | 2020-03-27 19:13 | RAD ---
EXAM: AP, oblique and lateral views of the left ankle AP, oblique and lateral views of the left foot DATE: 03/27/2020 6:23 PM INDICATION: Fall COMPARISON: No Prior FINDINGS: No acute fracture or dislocation. Ankle mortise is congruent. Talar dome is intact. Marked soft tissue swelling overlying the lateral malleolus and anterior left ankle as well as the dorsal forefoot and midfoot. Hallux MTP joint degenerative changes are seen. Ankle joint degenerative changes are seen. Talonavicular joint degenerative changes are seen. Atherosclerotic vascular calcifications are seen. Calcaneal enthesopathy. IMPRESSION: 1. Diffuse soft tissue swelling about the left foot and ankle without associated fracture or dislocation. 2. Calcaneal enthesopathy. 3. Hallux MTP degenerative change as well as midfoot degenerative changes are seen. Electronically signed by: Miguel Collins MD (03/27/2020 7:10 PM) [facility]
--- NOTE | 2020-03-27 19:17 | RAD ---
Examination: HIP RIGHT 2V WITH PELVIS History: Reason: fall /pain Comparison/Correlation: None Findings: Frontal view of pelvis and lateral view right hip are obtained. Frog-leg lateral view right hip are obtained. Hip joints are symmetric. Sacroiliac joints are symmetric and unremarkable. No displaced fracture or bone destruction. Impression: No acute fracture. Consider further imaging if occult process is a persistent concern. Electronically signed by: Michel Hernandez MD (03/27/2020 7:14 PM) [facility]
--- NOTE | 2020-03-27 19:29 | RAD ---
CT Head W/O Contrast: History: Reason: fall, HEAD INJURY / Spl. Instructions: / History: Comparison: none Axial images were obtained without contrast. There is moderate diffuse atrophy. There is no mass effect, extraaxial fluid collections or hydrocephalus. There is no gross bleed. Mild, patchy periventricular and subcortical white matter hypoattenuation is seen. There is no focal loss of barnhart-white matter distinction to suggest acute ischemia, i.e. stroke. Impression: No acute findings. RS Compliance Statement: One or more of the following individualized dose reduction techniques were utilized for this examination: 1. Automated exposure control 2. Adjustment of the mA and/or kV according to patient size 3. Use of iterative reconstruction technique Electronically signed by: Frankie Villarreal III, MD (03/27/2020 7:26 PM) [facility]
--- NOTE | 2020-03-27 19:37 | RAD ---
Examination: CT THORACIC SPINE WO CONTRAST, CT LUMBAR SPINE WO CONTRAST History: Reason: fall, BACK INJURY, pain Comparison/Correlation: None Findings: Axial images of the thoracic and lumbar spine were obtained without contrast. Sagittal and coronal reformatted images were provided. The thoracic spine is normal. Confluent calcification along the anterior margins of the thoracic spine noted with disc spaces are adequate. Mild dextroconvexity of the upper thoracic spine noted. Alignment of the lumbar spine is unremarkable. Spurring is noted involving the lumbar spine vertebral bodies anteriorly. This spaces are adequate. Vertebral body heights are adequate. Facet joint degenerative changes of the lower lumbar spine are present. Sacroiliac joints are unremarkable bilaterally. Concentric disc bulge at L3-4 is present. Mild L4-5 concentric disc bulge is also present. Moderate spinal canal stenosis at these levels is present. Neural foramina are adequate. Retroperitoneum is unremarkable. Small pleural effusions are present. Extensive coronary arterial calcification noted. Retroperitoneum is unremarkable. Impression: No fracture or malalignment. Findings of diffuse hepatic skeletal hyperostosis involving thoracic spine. Small pleural effusions. Electronically signed by: Michel Hernandez MD (03/27/2020 7:34 PM) [facility]
--- NOTE | 2020-03-27 20:41 | RAD ---
Examination: TIBIA FIBULA LEFT History: Reason: FALL, LEG PAIN / Spl. Instructions: / History: Comparison/Correlation: None Findings: Frontal and lateral views of the left tibia and fibula were obtained. The distal aspect of the tibia and fibula were not included on this examination limiting assessment. Surgical clips are present at the distal femoral level and proximal tibial level. No fracture or bone destruction. Minimal spurring about the patella is noted. Medial and lateral compartment are unremarkable. Impression: No fracture or bony destructive finding involving the visualized proximal to mid tibia and fibula. The distal tibia and fibula were not included. Consider further imaging if needed for more complete assessment. Electronically signed by: Michel Hernandez MD (03/27/2020 8:38 PM) [facility]
--- NOTE | 2020-03-27 20:43 | RAD ---
Examination: Unilateral venous Doppler. Technique: Ultrasound evaluation of the left lower extremity was performed from the groin to the upper calf with conteh scale, spectral and color doppler evaluation. Indication: Leg swelling Comparison: None Findings: There is normal venous flow and compressibility of left common femoral vein, femoral vein, popliteal vein, and visualized proximal calf veins. Diffuse cutaneous soft tissue swelling about the lower leg. Impression: No evidence for deep vein thrombosis of left lower extremity from the level of the calf veins to the groins. Electronically signed by: Miguel Collins MD (03/27/2020 8:40 PM) [facility]
[2020-03-27] MEDS ORDERED: CEPH-264 PO (21:05)
[2020-03-27 21:50] VITALS: BP 182/89
== END 2020-03-27 21:54 | disposition home or self-care (01) ==
LOC: ER 16:28
DX: S93.492A Sprain of other ligament of left ankle, initial encounter (principal); S70.01XA Contusion of right hip, initial encounter; S30.0XXA Contusion of lower back and pelvis, initial encounter; L03.116 Cellulitis of left lower limb; J44.9 Chronic obstructive pulmonary disease, unspecified; K21.9 Gastro-esophageal reflux disease without esophagitis; E78.00 Pure hypercholesterolemia, unspecified; I10 Essential (primary) hypertension; I25.2 Old myocardial infarction; Z90.89 Acquired absence of other organs; Z88.0 Allergy status to penicillin; Z88.1 Allergy status to other antibiotic agents; Z86.73 Personal history of transient ischemic attack (TIA), and cerebral infarction without residual deficits; Z87.891 Personal history of nicotine dependence; W18.39XA Other fall on same level, initial encounter; Y93.89 Activity, other specified; Y92.89 Other specified places as the place of occurrence of the external cause; Y99.8 Other external cause status
CPT/HCPCS: 70450; 71045; 72128; 72131; 73502; 73590; 73610; 73630; 93971; 99285

== ENCOUNTER → 2020-12-28 | Outpatient (CLI) | payer MEDICARE, MEDICAID ==
[~2020-12-28] MED LIST changes: +CEPH-264 PO; +LISI10TA16 PO; -LISI10TA2 PO
--- NOTE | 2020-12-28 16:55 | RAD ---
MR#: [id number] Date of Study: 12/28/2020 Ordering Physician: GILBERTO DIAZ, Referring Physician: GILBERTO DIAZ, Tech: Bell Baker RDMS, RVT, RTR APPROVED REPORT Bilateral Lower Extremity Venous Study for DVT Patient Location: OUT-PATIENT Indications Lower Extremity Edema: Bilateral Findings The bilateral lower extremity deep veins were evaluated for thrombus with color Doppler, spectral and grayscale images. On the right the grayscale images of the common femoral, superficial femoral and popliteal veins do n ot demonstrate any evidence of thrombus and these veins appear to be compressible. The below-knee vei ns were not well visualized but grossly appear to be compressible. Spectral imaging and color Doppler do not reveal any evidence of obstruction to flow with normal respirophasic variation above the knee . Below the knee there is spontaneous flow noted. On the left, the grayscale images of the common femoral, superficial femoral and popliteal veins do n ot demonstrate any evidence of thrombus and these veins appear to be compressible. The below-knee vei ns again were not well visualized but grossly appear to be compressible. Spectral imaging and color D oppler do not reveal any evidence of obstruction to flow with normal respirophasic variation above th e knee. The below-knee veins demonstrate spontaneous flow. Critical Notification Critical Value: No <Conclusion> 1. Negative for DVT in the bilateral lower extremities. Signed by : Steve Keys, Electronically Approved : 12/28/2020 16:55:36
--- NOTE | 2020-12-28 16:59 | RAD ---
MR#: [id number] Date of Study: 12/28/2020 Ordering Physician: GILBERTO DIAZ, Referring Physician: GILBERTO DIAZ, Tech: Bell Baker, CINDY, RVT, RTR APPROVED REPORT Patient Location: OUT-PATIENT Indications PAD VELOCITY AND DOPPLER WAVEFORM ANALYSIS RIGHT cm/secWaveformSeverity LEFT cm/secWaveform Severity pCFA 138.8pCFA 129.7 dCFA 114.6dCFA 114.9 Prof Fem Art. 130.4Prof Fem Art. 89.2 Fem Art Prox. 80.2Fem Art Prox. 128.1 Fem Art Mid. 76.0Fem Art Mid. 99.2 Fem Art Dist. 47.6Fem Art Dist. 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 63.0PTA Prox. 84.1 CONDITIONING ROOM WORKER Dist. 35.8PTA Dist. Per Art Prox. 50.8Per Art Prox. 41.0 [place] Prox. 50.8ATA Prox. 53.1 DPA 30DPA 28 Findings Grayscale images of the bilateral lower extremity arterial vessels demonstrates diffuse arterial plaq ue of moderate degree. On the right side mostly biphasic waveforms throughout the arterial course with three-vessel runoff b elow the knee without any focal high-grade stenosis noted. On the left side no significant above-knee disease noted. Velocities are diminished at the level of the popliteal artery and there is likely a patent popliteal to tibioperoneal trunk bypass graft witho ut any significant occlusive disease noted within the graft. The posterior tibial artery appears to be occluded distally. There is two-vessel runoff otherwise below the knee on the left side. Critical Notification Critical Value: No <Conclusion> 1. No significant right lower extremity arterial disease 2. 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 Signed by : Steve Keys, Electronically Approved : 12/28/2020 16:59:16
== END ==
LOC: US 09:14
PROVIDERS: ATTEND Internal Medicine Cardiovascular Disease
DX: I70.203 Unspecified atherosclerosis of native arteries of extremities, bilateral legs (principal); R60.0 Localized edema
CPT/HCPCS: 93925; 93970

== ENCOUNTER → 2021-01-01 | Outpatient (CLI) | payer MEDICARE, MEDICAID ==
--- NOTE | 2021-01-01 09:29 | RAD ---
MR#: [id number] Date of Study: 01/01/2021 Ordering Physician: GILBERTO DIAZ, Referring Physician: GILBERTO DIAZ, Tech: Yoni Renteria MBA, RDMS, RVT, RDCS, RTR APPROVED REPORT Patient Location : OUT-PATIENT Indications Lower Extremity Edema : Bilateral Findings Grayscale images of the bilateral saphenofemoral junctions are grossly unremarkable. The right great saphenous vein measures 4.1 mm and the left great saphenous vein measures 4.3 mm. The bilateral gre ater and lesser saphenous veins did not reveal any evidence of reflux. Critical Notification Critical Value: No <Conclusion> 1. Negative for reflux in the bilateral greater and lesser saphenous veins Signed by : Steve Keys, Electronically Approved : 01/01/2021 09:28:53
== END ==
LOC: US 08:43
PROVIDERS: ATTEND Internal Medicine Cardiovascular Disease
DX: R60.0 Localized edema (principal)
CPT/HCPCS: 93970